=== PATIENT | female | born 2005 | race Caucasian/White ===

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

== ENCOUNTER → 2025-01-23 15:03 | Outpatient (BNVA) | payer BC, MEDICAID, SELFPAY | DX: B37.31 Acute candidiasis of vulva and vagina (principal) | CPT/HCPCS: 81000; 87086; 87491; 87591; 87661 ==

== ENCOUNTER → 2025-02-13 14:50 | Outpatient (BNVA) | payer BC, MEDICAID, SELFPAY | DX: B37.31 Acute candidiasis of vulva and vagina (principal) | CPT/HCPCS: 81000; 87086 ==

== ENCOUNTER → 2025-04-07 14:58 | Outpatient (BNVA) | payer BC, MEDICAID, SELFPAY | DX: R30.0 Dysuria (principal); N30.00 Acute cystitis without hematuria | CPT/HCPCS: 81000; 87086 ==